=== PATIENT | female | born 1955 | race Caucasian/White ===

== ENCOUNTER → 2016-09-07 | Outpatient (CLI) | payer MEDICARE ==
[2016-09-07 13:56] LABS: BASOPHILS # (AUTO) 0.1 10^3/uL (0.0-0.1); BASOPHILS % (AUTO) 1.1 %; EOSINOPHILS # (AUTO) 0.5 10^3/uL (0.0-0.7); EOSINOPHILS % (AUTO) 7.1 %; HCT - HEMATOCRIT 39.9 % (37.0-47.0); HGB - HEMOGLOBIN 13.5 g/dL (12.0-16.0); LYMPHOCYTES # (AUTO) 1.8 10^3/uL (1.5-3.5); LYMPHOCYTES % (AUTO) 25.2 %; MEAN CORPUSCULAR HEMOGLOBIN 30.8 pg (27.0-31.0); MEAN CORPUSCULAR HGB CONC 33.8 g/dL (32.0-36.0); MEAN CORPUSCULAR VOLUME 91.4 fL (81.0-99.0); MONOCYTES # (AUTO) 0.5 10^3/uL (0.0-1.0); MONOCYTES % (AUTO) 6.5 %; NEUTROPHILS # (AUTO) 4.3 10^3/uL (1.5-6.6); NEUTROPHILS % (AUTO) 60.1 %; RED BLOOD COUNT 4.37 10^6/uL (4.20-5.40); RED CELL DISTRIBUTION WIDTH 13.8 % (12.0-15.0); UNCORRECTED WHITE BLOOD COUNT 7.1 x10^3/uL; WHITE BLOOD COUNT 7.1 x10^3/uL (4.8-10.8)
[2016-09-07 14:19] LABS: ALBUMIN/GLOBULIN RATIO 1.1 (1.0-2.2); BILIRUBIN,TOTAL 0.4 mg/dL (0.2-1.0); BUN - BLOOD UREA NITROGEN 21 mg/dL (6-20); CALCIUM 9.7 mg/dL (8.5-10.3); CARBON DIOXIDE - CO2 24 mmol/L (21-32); CHLORIDE 107 mmol/L (101-111); CHOLESTEROL 195 mg/dL; CREATININE 0.8 mg/dL (0.4-1.0); GFR - MDRD 73 (>89); GLUCOSE 114 mg/dL (70-100); HDL CHOLESTEROL 39 mg/dL; LDL/HDL RATIO 2.7 (<4.4); POTASSIUM 4.3 mmol/L (3.5-5.0); SODIUM 139 mmol/L (135-145); TOTAL PROTEIN 7.3 g/dL (6.7-8.2); TRIGLYCERIDES 244 mg/dL; VLDL CHOLESTEROL 49 mg/dL
== END ==
LOC: LAB.WCP 08:00
PROVIDERS: ATTEND Physician Assistant Medical
DX: Z00.00 Encounter for general adult medical examination without abnormal findings (principal)
CPT/HCPCS: 36415; 80053; 80061; 84443; 85025

== ENCOUNTER 2017-01-30 16:31 | Outpatient (CLI) | payer MEDICARE | END 2017-01-30 16:32 | LOC: LAB.WCP 16:31 | PROVIDERS: ATTEND Physician Assistant Medical | DX: L72.3 Sebaceous cyst (principal) | CPT/HCPCS: 87070; 87205 ==

== ENCOUNTER 2017-06-04 07:26 | Outpatient (CLI) | payer MEDICARE ==
[2017-06-04 12:38] LABS: CALCIUM 9.7 mg/dL (8.5-10.3); CREATININE 0.7 mg/dL (0.4-1.0)
[2017-06-04 12:40] LABS: LITHIUM 0.38 mmol/L
[2017-06-04 13:23] LABS: HEMOGLOBIN A1C 0.48 g/dL; HEMOGLOBIN A1C % 5.1 % (4.6-6.2)
== END 2017-06-04 07:27 | disposition home or self-care (01) ==
LOC: LAB.WCP 07:26
PROVIDERS: ATTEND Physician Assistant Medical
DX: R73.9 Hyperglycemia, unspecified (principal); F31.9 Bipolar disorder, unspecified
CPT/HCPCS: 36415; 80048; 80178; 83036

== ENCOUNTER 2017-06-13 09:00 | Outpatient (CLI) | payer MEDICARE ==
[2017-06-13 12:35] LABS: BASOPHILS # (AUTO) 0.1 10^3/uL (0.0-0.1); BASOPHILS % (AUTO) 1.1 %; EOSINOPHILS # (AUTO) 0.6 10^3/uL (0.0-0.7); EOSINOPHILS % (AUTO) 8.6 %; HGB - HEMOGLOBIN 13.2 g/dL (12.0-16.0); LYMPHOCYTES # (AUTO) 1.7 10^3/uL (1.5-3.5); LYMPHOCYTES % (AUTO) 24.3 %; MEAN CORPUSCULAR HEMOGLOBIN 29.7 pg (27.0-31.0); MEAN CORPUSCULAR HGB CONC 33.6 g/dL (32.0-36.0); MEAN CORPUSCULAR VOLUME 88.4 fL (81.0-99.0); MEAN PLATELET VOLUME 9.3 fL (7.9-10.8); MONOCYTES # (AUTO) 0.4 10^3/uL (0.0-1.0); MONOCYTES % (AUTO) 5.6 %; NEUTROPHILS # (AUTO) 4.1 10^3/uL (1.5-6.6); NEUTROPHILS % (AUTO) 60.4 %; PLT - PLATELET COUNT 267 10^3/uL (130-450); RED BLOOD COUNT 4.44 10^6/uL (4.20-5.40); RED CELL DISTRIBUTION WIDTH 13.4 % (12.0-15.0); WHITE BLOOD COUNT 6.8 x10^3/uL (4.8-10.8)
[2017-06-13 12:44] LABS: ALBUMIN 3.9 g/dL (3.2-5.5); ALBUMIN/GLOBULIN RATIO 1.3 (1.0-2.2); ALKALINE PHOSPHATASE 78 IU/L (42-121); ALT ALANINE AMINOTRANSFERASE 24 IU/L (10-60); AST ASPARTATE AMINOTRANSFERASE 21 IU/L (10-42); BILIRUBIN,TOTAL 0.4 mg/dL (0.2-1.0); BUN - BLOOD UREA NITROGEN 13 mg/dL (6-20); CALCIUM 9.7 mg/dL (8.5-10.3); CARBON DIOXIDE - CO2 23 mmol/L (21-32); CHLORIDE 109 mmol/L (101-111); CREATININE 0.8 mg/dL (0.4-1.0); GFR - MDRD 72 (>89); GLUCOSE 100 mg/dL (70-100); LIPASE 23 U/L (22-51); SODIUM 138 mmol/L (135-145)
[2017-06-13 12:56] LABS: THYROID STIMULATING HORMONE 0.16 uIU/mL (0.34-5.60)
[2017-06-13 13:33] LABS: FREE T4 (FREE THYROXINE) 0.86 ng/dL (0.58-1.64)
== END 2017-06-13 09:01 | disposition home or self-care (01) ==
LOC: LAB.WCP 09:00
PROVIDERS: ATTEND Physician Assistant Medical
DX: R10.31 Right lower quadrant pain (principal)
CPT/HCPCS: 36415; 80053; 83690; 84439; 84443; 85025; 87086

== ENCOUNTER 2017-06-17 11:12 | Outpatient (CLI) | payer MEDICARE | END 2017-06-17 11:13 | disposition home or self-care (01) | LOC: DI 11:12 | PROVIDERS: ATTEND Physician Assistant Medical | DX: R00.1 Bradycardia, unspecified (principal); I51.7 Cardiomegaly | CPT/HCPCS: 93306 ==

== ENCOUNTER 2017-06-20 07:03 | Outpatient (CLI) | payer MEDICARE ==
[2017-06-20] MEDS ORDERED: IOPAMIDOL-300 100 ML VIAL ONE (07:19)
[2017-06-20] MEDS ORDERED: IOPAMIDOL-300 50 ML VIAL ONE (07:20)
[2017-06-20] MEDS ORDERED: IOPAMIDOL-300 50 ML VIAL PO ONE (08:45)
[2017-06-20] MEDS ORDERED: IOPAMIDOL-300 100 ML VIAL IVP ONE (08:45)
--- NOTE | 2017-06-20 12:40 | CT Report ---
CT ABDOMEN AND PELVIS WITH CONTRAST: 06/20/2017 CLINICAL INDICATION: Right lower quadrant abdominal pain. TECHNIQUE: Axial CT images of the abdomen and pelvis were obtained with 100 mL Isovue 300 intravenously as well as oral contrast. FINDINGS: Limited evaluation of the lung bases demonstrates mild atelectasis. ABDOMEN: The liver, pancreas, kidneys and adrenal glands are unremarkable. The spleen demonstrates a hypodense 2 cm nodule centrally, which may represent a cyst or hemangioma. Consider ultrasound for further evaluation. The patient is status post cholecystectomy. No bowel dilatation, free gas, or free fluid is present. No abdominal adenopathy is seen. PELVIS: The appendix is seen in the right lower quadrant, and is normal in caliber. There is a calcified leiomyoma in the uterus. No pelvic adenopathy or free fluid is present. Osseous structures demonstrate degenerative changes. IMPRESSION: NORMAL APPENDIX. NO EVIDENT ETIOLOGY FOR PATIENT'S RIGHT LOWER QUADRANT PAIN. 2 CM HYPODENSE NODULE IN THE CENTRAL PORTION OF THE SPLEEN. CONSIDER ULTRASOUND FOR FURTHER EVALUATION. CT DOSE REDUCTION STATEMENT In accordance with CT protocol optimization, one or more of the following dose reduction techniques were utilized for this exam: automated exposure control, adjustment of mA and/or KV based on patient size, or use of iterative reconstructive technique. TD: 06/20/2017 12:39
== END 2017-06-20 07:04 | disposition home or self-care (01) ==
LOC: DI 07:03
PROVIDERS: ATTEND Physician Assistant Medical
DX: R10.31 Right lower quadrant pain (principal); D73.9 Disease of spleen, unspecified
CPT/HCPCS: 74177; Q9967

== ENCOUNTER 2017-06-25 18:51 | Outpatient (CLI) | payer MEDICARE ==
--- NOTE | 2017-06-26 13:53 | Ultrasound Report ---
LIMITED ABDOMINAL ULTRASOUND: 06/25/2017 INDICATION: Evaluate splenic lesion on the CT of 06/20/2017. FINDINGS: Ultrasound of the spleen was performed. The spleen measures 10.3 x 8.8 x 4.7 cm. In the central portion of the spleen, there is a 2.5 x 2.1 x 1.8 cm smoothly marginated, hyperechoic nodule, compatible with a splenic hemangioma. IMPRESSION: ECHOGENIC 2.5 CM CIRCUMSCRIBED NODULE IN THE CENTRAL PORTION OF THE SPLEEN, CORRELATING WITH THE CT ABNORMALITY, COMPATIBLE WITH A SPLENIC HEMANGIOMA. TD: 06/26/2017 13:52
== END 2017-06-25 18:52 | disposition home or self-care (01) ==
LOC: DI 18:51
PROVIDERS: ATTEND Physician Assistant Medical
DX: D73.4 Cyst of spleen (principal)
CPT/HCPCS: 76705

== ENCOUNTER 2018-12-23 08:00 | Outpatient (CLI) | payer MEDICARE ==
[2018-12-23 19:46] LABS: LITHIUM 0.66 mmol/L
[2018-12-23 20:48] LABS: ALBUMIN 3.9 g/dL (3.2-5.5); ALBUMIN/GLOBULIN RATIO 1.3 (1.0-2.2); BILIRUBIN,TOTAL 0.5 mg/dL (0.2-1.0); CALCIUM 9.5 mg/dL (8.5-10.3); CREATININE 0.8 mg/dL (0.4-1.0)
== END 2018-12-23 23:59 | disposition home or self-care (01) ==
LOC: LAB.WCP 08:00
PROVIDERS: ATTEND Physician Assistant Medical
DX: R73.9 Hyperglycemia, unspecified (principal); F31.9 Bipolar disorder, unspecified; Z79.899 Other long term (current) drug therapy; E03.9 Hypothyroidism, unspecified
CPT/HCPCS: 36415; 80053; 80178; 84443

== ENCOUNTER 2022-11-20 17:32 | Outpatient (CLI) | payer MEDICARE ==
[2022-11-20 21:01] LABS: CALCIUM 10.5 mg/dL (8.5-10.3); CREATININE 0.8 mg/dL (0.6-1.3); POTASSIUM 4.2 mmol/L (3.5-4.5)
[2022-11-20 21:02] LABS: LITHIUM 0.63 mmol/L
[2022-11-20 21:36] LABS: THYROID STIMULATING HORMONE 0.26 uIU/mL (0.34-5.60)
== END 2022-11-20 17:33 | disposition home or self-care (01) ==
LOC: LAB.N 17:32
PROVIDERS: ATTEND Family Medicine
DX: F31.9 Bipolar disorder, unspecified (principal); Z79.899 Other long term (current) drug therapy; K76.0 Fatty (change of) liver, not elsewhere classified; E03.9 Hypothyroidism, unspecified
CPT/HCPCS: 36415; 80048; 80178; 84439; 84443